=== PATIENT | male | born 1955 | race Caucasian/White ===

== ENCOUNTER → 2016-11-26 | Outpatient (CLI) | payer OTHER ==
--- NOTE | 2016-11-26 14:40 | RADIOLOGY REPORT (SQ) ---
EXAM DESCRIPTION: U/S ABDOMEN LIMITED W/O DOP COMPLETED DATE/TIME: 11/26/2016 2:17 pm REASON FOR STUDY: LOWER ABDOMINAL PAIN R10.30 LOWER ABDOMINAL PAIN, UNSPECIFIED COMPARISON: None. TECHNIQUE: Dynamic and static grayscale images acquired of the abdomen and recorded on PACS. Additio nal selected color Doppler and spectral images recorded. LIMITATIONS: None. FINDINGS: Sonographic imaging was performed in the lower mid abdomen to the right lower quadrant. A dilated appendix was not identified. Normal appearing bowel was seen in the area of concern. No ab normal fluid collection was seen. IMPRESSION: Unremarkable right lower quadrant abdominal ultrasound. COMMENT: The findings were discussed with JOSEFA Perry, at 1433 hours on this date. TECHNICAL DOCUMENTATION: JOB ID: [id number] [employer] ([employer])- All Rights Reserved
== END ==
LOC: RAD 13:47
PROVIDERS: ATTEND Nurse Practitioner
DX: R10.30 Lower abdominal pain, unspecified (principal)
CPT/HCPCS: 76705

== ENCOUNTER 2019-02-19 17:36 | Emergency (ER) | payer OTHER ==
--- NOTE | 2019-02-19 18:10 | ER Document Report ---
ED Medical Screen (RME) - General Chief Complaint: Swelling Stated Complaint: ARM SWELLING Time Seen by Provider: 02/19/19 18:00 Primary Care Provider: BETZY BRITTON FNP [Primary Care Provider] - Follow up as needed Notes: 63-year-old male presents emergency department with swelling over his left elbow. 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 It then swelled significantly. Patient initially went to urgent care but was referred to the emergency department. Exam: Well-appearing in no acute distress, significant soft tissue swelling of the posterior aspect of the left arm at the elbow and distal to it approximately the size of a softball. I have greeted and performed a rapid initial assessment of this patient. A comprehensive ED assessment and evaluation of the patient, analysis of test results and completion of medical decision making process will be conducted by an additional ED providers. TRAVEL OUTSIDE OF THE [place] IN LAST 30 DAYS: No - Related Data Allergies/Adverse Reactions: Iodinated Contrast Media [IV Dye, Iodine Containing] Allergy (Verified 06/05/15 17:16) Past Medical History - Past Medical History Cardiac Medical History: Reports: Hx Hypertension Pulmonary Medical History: Reports: Hx Pneumonia - x2 GI Medical History: Reports: Hx Gastroesophageal Reflux Disease, Hx Ulcer Psychiatric Medical History: Denies: Hx Depression Traumatic Medical History: Reports: Hx Fractures - Left tibial plateau fracture Past Surgical History: Reports: Hx Abdominal Surgery - bilat inguinal hernia, Hx Orthopedic Surgery - c5-c6 fusion. Left tibial plateau fracture repair on 06/09/2015., Hx Tonsillectomy - Immunizations Hx Diphtheria, Pertussis, Tetanus Vaccination: No Physical Exam - Vital signs Vitals: Temp Pulse Resp BP Pulse Ox 97.7 F 88 20 153/100 H 97 02/19/19 17:45 02/19/19 17:45 02/19/19 17:45 02/19/19 17:45 02/19/19 17:45 Course - Vital Signs Vital signs: Temp Pulse Resp BP Pulse Ox 97.7 F 88 20 153/100 H 97 02/19/19 17:45 02/19/19 17:45 02/19/19 17:45 02/19/19 17:45 02/19/19 17:45 Doctor's Discharge - Discharge Referrals: TOBI,BETZY, BOOSTER [employer]ATION OPERATOR [Primary Care Provider] - Follow up as needed
--- NOTE | 2019-02-19 18:57 | ER Document Report ---
ED General - General Chief Complaint: Arm Problem Stated Complaint: ARM SWELLING Time Seen by Provider: 02/19/19 18:00 Primary Care Provider: BETZY BRITTON FNP [NURSE PRACTITIONER] - Follow up as needed Notes: Patient presents with left arm swelling. 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 There is no pain. He feels a little stiff but is able to range the elbow well. Says it has expanded since then and then began to dissipate but there is mild discoloration there. He denies trauma but says he does lean on his elbow at work and has had a nervous habit of moving his elbow against the desk repeatedly. He has no numbness or tingling in the hand and no fever. He is right-hand dominant. TRAVEL OUTSIDE OF THE [place] IN LAST 30 DAYS: No - Related Data Allergies/Adverse Reactions: Iodinated Contrast Media [IV Dye, Iodine Containing] Allergy (Verified 06/05/15 17:16) Past Medical History - Social History Smoking Status: Never Smoker Chew tobacco use (# tins/day): No Frequency of alcohol use: Social Drug Abuse: None Family History: Reviewed & Not Pertinent Patient has suicidal ideation: No Patient has homicidal ideation: No - Past Medical History Cardiac Medical History: Reports: Hx Hypertension Pulmonary Medical History: Reports: Hx Pneumonia - x2 GI Medical History: Reports: Hx Gastroesophageal Reflux Disease, Hx Ulcer Psychiatric Medical History: Denies: Hx Depression Traumatic Medical History: Reports: Hx Fractures - Left tibial plateau fracture Past Surgical History: Reports: Hx Abdominal Surgery - bilat inguinal hernia, Hx Orthopedic Surgery - c5-c6 fusion. Left tibial plateau fracture repair on 06/09/2015., Hx Tonsillectomy - Immunizations Hx Diphtheria, Pertussis, Tetanus Vaccination: No Review of Systems - Review of Systems Notes: REVIEW OF SYSTEMS GEN: Denies fever, chills, weight loss ENT: Denies sore throat, nasal discharge, ear pain EYES: Denies blurry vision, eye pain, discharge CV: Denies chest pain, palpitations, edema RESP: Denies cough, shortness of breath, wheezing GI: Denies abdominal pain, nausea, vomiting, diarrhea MSK: Elbow joint swelling SKIN: Denies rash, skin lesions LYMPH: Denies swollen glands/lymph nodes NEURO: Denies headache, focal weakness or numbness, dizziness PSYCH: Denies depression, suicidal or homicidal ideation PHYSICAL EXAMINATION General: No acute distress, well-nourished Head: Atraumatic, normocephalic ENT: Mouth normal, oropharynx moist, no exudates or tonsillar enlargement Eyes: Conjunctiva normal, pupils equal, lids normal Neck: No JVD, supple, no guarding CVS: Normal rate, regular rhythm, no murmurs Resp: No resp distress, equal and normal breath sounds bilaterally GI: Nondistended, soft, no tenderness to palpation, no rebound or guarding Ext: Pronounced swelling around the olecranon which does not include the forearm, the humeral segment or the antecubital region. Range of motion is full in the left arm without warmth. There is no tenderness of the hematoma. There is mild bruising at the distal olecranon area. Normal pulses distally normal finger movement and sensation. Back: No CVA or midline TTP Skin: No rash, warm Lymphatic: No lymphadeopathy noted Neuro: Awake, alert. Face symmetric. GCS 15. Physical Exam - Vital signs Vitals: Temp Pulse Resp BP Pulse Ox 97.7 F 88 20 153/100 H 97 02/19/19 17:45 02/19/19 17:45 02/19/19 17:45 02/19/19 17:45 02/19/19 17:45 Course - Re-evaluation Re-evalutation: 02/19/19 18:56 Spontaneous hematoma likely around the olecranon bursa secondary to Eliquis. Compartments are soft with no neurovascular compromise, it is not expanded in the last several hours and in fact may be dissipating, there is no fever or restricted range of motion to suggest septic bursitis or septic joint. Will Rudy wrap compress and have him follow-up Dr. Rey Patel. Recommended at this time continuing Xarelto given that he had a posttibial fracture DVT that was proximal. All questions answered. I have discussed with the patient there likely diagnosis, aftercare plan, follow-up plans and my usual and customary return precautions. They verbalized understanding of this. - Vital Signs Vital signs: Temp Pulse Resp BP Pulse Ox 97.7 F 88 20 153/100 H 97 02/19/19 17:45 02/19/19 17:45 02/19/19 17:45 02/19/19 17:45 02/19/19 17:45 Discharge - Discharge Clinical Impression: Traumatic hematoma of left elbow Qualifiers: Encounter type: initial encounter Qualified Code(s): S50.02XA - Contusion of left elbow, initial encounter Condition: Good Disposition: HOME, SELF-CARE Instructions: Hematoma ([facility]) Additional Instructions: Please call Dr. Rey Patel and be re-8examined within 5 to 7 days. Return to the ER if you have any numbness or tingling in the hand. Referrals: BETZY BRITTON FNP [NURSE PRACTITIONER] - Follow up as needed
[2019-02-19 19:38] VITALS: BP 159/89
== END 2019-02-19 19:40 | disposition home or self-care (01) ==
LOC: ER 17:36
DX: S50.02XA Contusion of left elbow, initial encounter (principal); X58.XXXA Exposure to other specified factors, initial encounter; M25.429 Effusion, unspecified elbow; I82.409 Acute embolism and thrombosis of unspecified deep veins of unspecified lower extremity; Z79.02 Long term (current) use of antithrombotics/antiplatelets; Z91.041 Radiographic dye allergy status
CPT/HCPCS: 99283

== ENCOUNTER → 2019-02-24 | Outpatient (CLI) | payer OTHER, BC ==
--- NOTE | 2019-02-24 14:27 | RADIOLOGY REPORT (SQ) ---
EXAM DESCRIPTION: VENOUS UNILATERAL UPPER COMPLETED DATE/TIME: 02/24/2019 2:10 pm REASON FOR STUDY: LUE PAIN/SWELLING M79.609 PAIN IN UNSPECIFIED LIMB M79.89 OTHER SPECIFIED SOFT T ISSUE DISORDERS COMPARISON: None. TECHNIQUE: Dynamic and static liu scale and color images acquired of the left arm venous system. Se lected spectral images acquired with additional compression and augmentation maneuvers. The contralat eral subclavian vein and internal jugular vein were also imaged. Images stored on PACS. LIMITATIONS: None. FINDINGS: INTERNAL JUGULAR VEIN: Normal phasicity, compression, augmentation. No visualized echogeni c material on liu scale. No defects on color images. Comparison opposite side normal. SUBCLAVIAN VEIN: Normal compression, augmentation. No visualized echogenic material on liu scale. No defects on color images. AXILLARY VEIN: Normal compression, augmentation. No visualized echogenic material on liu scale. No d efects on color images. BRACHIAL VEIN: Normal compression, augmentation. No visualized echogenic material on liu scale. No d efects on color images. BASILIC VEIN: Normal compression, augmentation. No visualized echogenic material on liu scale. No de fects on color images. CEPHALIC VEIN: Normal compression, augmentation. No visualized echogenic material on liu scale. No d efects on color images. OTHER: No other significant finding. CONTRALATERAL SUBCLAVIAN VEIN AND INTERNAL JUGULAR VEIN: Normal phasicity, compression and augmentation. No visualized echogenic material on liu scale. No de fects on color images. IMPRESSION: No evidence of DVT or SVT within the left upper extremity. TECHNICAL DOCUMENTATION: JOB ID: [id number] [employer]- All Rights Reserved Reading location - IP/workstation name: [email or web address]
== END ==
LOC: SP 12:54
PROVIDERS: ATTEND Internal Medicine
DX: M79.602 Pain in left arm (principal); M79.89 Other specified soft tissue disorders
CPT/HCPCS: 93971